=== PATIENT | female | born 1955 | race Hispanic/Latino ===

== ENCOUNTER 2020-05-11 16:39 | Emergency (ER) | payer MEDICARE ==
[~2020-05-11] VITALS: Ht 147.3 cm; Wt 60.8 kg
[~2020-05-11 16:39] MED LIST: B/P MED; Z.0.DEXILANT30 MG PO; Z.0.DICYCLOMINE HCL1 PO; Z.0.FENOFIBRATE160 M PO; Z.0.GABAPENTIN300 MG PO; Z.0.HYDROCHLOROTHIA2 PO; Z.1.HYDROCHLOROTH12. PO
[2020-05-11] MEDS ORDERED: ACETAMINOPHEN 325 MG TAB PO ONE (17:00)
[2020-05-11] MEDS ORDERED: FAMOTIDINE 20 MG/2 ML VIAL IV ONE (17:00)
[2020-05-11 17:18] LABS: BASOPHILS # (AUTO) 0.1 (0.0-0.1); BASOPHILS % 0.4 % (0.0-1.0); EOSINOPHILS # (AUTO) 0.2 (0.0-0.4); EOSINOPHILS % 1.3 % (0.0-6.0); HEMATOCRIT 44.5 % (34.2-44.1); HEMOGLOBIN 15.1 g/dL (12.0-16.0); LYMPHOCYTES # (AUTO) 3.7 (1.0-3.2); LYMPHOCYTES % 32.3 % (18.0-39.1); MEAN CORPUSCULAR HEMOGLOBIN 29.5 pg (28-32); MEAN CORPUSCULAR HGB CONC 33.9 g/dL (31-35); MEAN CORPUSCULAR VOLUME 87.1 fL (81-99); MONOCYTES # (AUTO) 0.5 (0.2-0.8); MONOCYTES % 4.5 % (4.4-11.3); PLATELET COUNT 178 x10e3/uL (140-360); RED BLOOD COUNT 5.11 x10e6/uL (3.6-5.1); RED CELL DISTRIBUTION WIDTH 11.8 % (11.7-14.4)
[2020-05-11 17:36] LABS: ALANINE AMINOTRANSFERASE 26 IU/L (0-55); ALBUMIN 4.9 g/dL (3.5-5.0); ALBUMIN/GLOBULIN RATIO 1.5 (0.8-2.0); ALKALINE PHOSPHATASE 65 IU/L (40-150); ANION GAP 18.7 mmol/L (8-16); BLOOD UREA NITROGEN 20 mg/dL (7-26); BUN/CREATININE RATIO 26 (6-25); CARBON DIOXIDE 23 mmol/L (22-29); CHLORIDE 105 mmol/L (98-107); CREATINE KINASE 251 IU/L (29-168); CREATININE, SERUM 0.77 mg/dL (0.57-1.11); EST GLOMERULAR FILTRATION RATE > 60 ML/MIN (60-); GLUCOSE 124 mg/dL (74-118); POTASSIUM 3.7 mmol/L (3.5-5.1); SODIUM 143 mmol/L (136-145)
[2020-05-11 18:28] VITALS: BP 95/52
--- NOTE | 2020-05-11 18:31 | Emergency Department Note ---
History of Present Illnes History of Present Illness Chief Complaint: Chest Pain History of Present Illness This is a 65 year old female. Pt states she was seen by pcp who told her she had bronchitis and gave her abx; here today for cough cp and epigastric pain x 3 days denies fever/n/v/d/sore throat/muscle aches/chills seen by dr carrillo Historian: Patient Arrival Mode: Car Community Relations Director Required: No Onset (how long ago): day(s) Onset quality: gradual Duration (how long): day(s) Progression: waxing and waning Relieving factors: medication Exacerbating factors: none Associated symptoms: Reports other Treatments prior to arrival: none Past Medical/Family History Physician Review I have reviewed the patient's past medical and family history. Any updates have been documented here. Past Medical History Recent Fever: No Clinical Suspicion of Infectio: Yes New/Unexplained Change in Ment: No Past Medical History: Hypertension, Diabetes, GERD, Hyperlipedemia Other Medical History: GASTRITIS Past Surgical History: Cholecysctectomy, Appendectomy, Other Surgery: Social History Smoking Cessation: Never Smoker Counseling Performed: No Alcohol Use: None Any Illegal Drug Use: No Other Last Tetanus: NO Any Pre-Existing Lines (PICC,: No Review of Systems Review of Systems Constitutional: Reports no symptoms EENTM: Reports no symptoms Cardiovascular: Reports no symptoms Respiratory: Reports no symptoms, Reports chest congestion, Reports cough, Reports pain with cough Gastrointestinal: Reports no symptoms Genitourinary: Reports no symptoms Musculoskeletal: Reports no symptoms Integumentary: Reports no symptoms Neurological: Reports no symptoms Psychological: Reports no symptoms Endocrine: Reports no symptoms Hematological/Lymphatic: Reports no symptoms Physical Exam Related Data Allergies: Coded Allergies: Sulfa(Sulfonamide Antibiotics) (Verified Allergy, 06/01/12) Triage Vital Signs Vital Signs Date Time Temp Pulse Resp B/P (MAP) Pulse Ox O2 Delivery O2 Flow Rate FiO2 05/11/20 16:46 98.9 103 20 179/82 100 Room Air Vital signs reviewed: Yes Physical Exam CONSTITUTIONAL Constitutional: Present well-developed, Present well-nourished HENT HENT: Present normocephalic, Present atraumatic, Present oropharynx clear/moist, Present nose normal HENT L/R: Present left ext ear normal, Present right ext ear normal EYES Eyes: Reports PERRL, Reports conjunctivae normal NECK Neck: Present ROM normal PULMONARY Pulmonary: Present effort normal, Present breath sounds normal CARDIOVASCULAR Cardiovascular: Present regular rhythm, Present heart sounds normal, Present capillary refill normal, Present normal rate GASTROINTESTINAL Abdominal: Present soft, Present nontender, Present bowel sounds normal GENITOURINARY Genitourinary: Present exam deferred SKIN Skin: Present warm, Present dry MUSCULOSKELETAL Musculoskeletal: Present ROM normal NEUROLOGICAL Neurological: Present alert, Present oriented x 3, Present no gross motor or sensory deficits PSYCHOLOGICAL Psychological: Present mood/affect normal, Present judgement normal Results Laboratory Result Diagram: 05/11/20 1655 05/11/20 1655 Laboratory Laboratory Tests Test 05/11/20 16:55 White Blood Count 11.44 x10e3/uL (4.8-10.8) Red Blood Count 5.11 x10e6/uL (3.6-5.1) Hemoglobin 15.1 g/dL (12.0-16.0) Hematocrit 44.5 % (34.2-44.1) Mean Corpuscular Volume 87.1 fL (81-99) Mean Corpuscular Hemoglobin 29.5 pg (28-32) Mean Corpuscular Hemoglobin Concent 33.9 g/dL (31-35) Red Cell Distribution Width 11.8 % (11.7-14.4) Platelet Count 178 x10e3/uL (140-360) Neutrophils (%) (Auto) 61.0 % (38.7-80.0) Lymphocytes (%) (Auto) 32.3 % (18.0-39.1) Monocytes (%) (Auto) 4.5 % (4.4-11.3) Eosinophils (%) (Auto) 1.3 % (0.0-6.0) Basophils (%) (Auto) 0.4 % (0.0-1.0) Neutrophils # (Auto) 7.0 (2.1-6.9) Lymphocytes # (Auto) 3.7 (1.0-3.2) Monocytes # (Auto) 0.5 (0.2-0.8) Eosinophils # (Auto) 0.2 (0.0-0.4) Basophils # (Auto) 0.1 (0.0-0.1) Absolute Immature Granulocyte (auto 0.06 x10e3/uL (0-0.1) D-Dimer Quantitative (PE/DVT) 0.33 ug/mLFEU (0.00-0.45) Sodium Level 143 mmol/L (136-145) Potassium Level 3.7 mmol/L (3.5-5.1) Chloride Level 105 mmol/L (98-107) Carbon Dioxide Level 23 mmol/L (22-29) Anion Gap 18.7 mmol/L (8-16) Blood Urea Nitrogen 20 mg/dL (7-26) Creatinine 0.77 mg/dL (0.57-1.11) Estimat Glomerular Filtration Rate > 60 ML/MIN (60-) BUN/Creatinine Ratio 26 (6-25) Glucose Level 124 mg/dL (74-118) Calcium Level 10.0 mg/dL (8.4-10.2) Total Bilirubin 1.6 mg/dL (0.2-1.2) Aspartate Amino Transf (AST/SGOT) 26 IU/L (5-34) Alanine Aminotransferase (ALT/SGPT) 26 IU/L (0-55) Alkaline Phosphatase 65 IU/L (40-150) Creatine Kinase 251 IU/L (29-168) Creatine Kinase MB 0.90 ng/mL (0-5.0) Troponin I 0.005 ng/mL (0-0.300) Total Protein 8.2 g/dL (6.5-8.1) Albumin 4.9 g/dL (3.5-5.0) Globulin 3.3 g/dL (2.3-3.5) Albumin/Globulin Ratio 1.5 (0.8-2.0) Laboratory comments ddimer nl, doubt PE Imaging Imaging results reviewed: Yes Imaging Comments no PNA Diagnostics Tests Diagnostic test(s) reviewed: Yes Procedures 12 Lead ECG Interpretation ECG Interpretation : ECG: ECG 1 Community Relations Director: Interpreted by ED physician Date: May 11, 2020 Time: 17:04 Prior ECG tracings: reviewed (old LBBB) Rhythm: sinus rhythm Rate: normal QRS axis: normal Conduction: left bundle branch block Clinical Impression: abnormal ECG Assessment & Plan Medical Decision Making MDM PNA vs bronchitis vs URI VS GERD Reassessment Reassessment time: 18:20 Reassessment doing better Assessment & Plan Final Impression: (1) Upper respiratory infection (2) Bronchitis Depart Disposition: HOME, SELF-CARE Last Vital Signs Date Time Temp Pulse Resp B/P (MAP) Pulse Ox O2 Delivery O2 Flow Rate FiO2 05/11/20 17:32 92 18 165/82 96 Room Air 05/11/20 16:46 98.9 Home Meds Reported Medications Dexlansoprazole (Dexilant) 30 Mg Nuno., 30 MG PO DAILY 06/18/12 Hydrochlorothiazide (Hydrochlorothiazide) 12.5 Mg Tablet, 12.5 MG PO DAILY 06/18/12 Dicyclomine Hcl (Dicyclomine Hcl) 10 Mg Capsule, 10 MG PO TID 06/18/12 Gabapentin (Gabapentin) 300 Mg Capsule, 300 MG PO BID 06/18/12 Fenofibrate (Fenofibrate) 160 Mg Tablet, 160 MG PO DAILY 06/18/12 [B/P Med] No Conflict Check 06/01/12 Medications in the ED Famotidine 20 mg ONCE ONCE IV Last administered on 05/11/20at 17:25; Admin Dose 20 MG; Start 05/11/20 at 17:00; Stop 05/11/20 at 17:01; Status DC Acetaminophen 650 mg ONCE ONCE PO Last administered on 05/11/20at 17:27; Admin Dose 650 MG; Start 05/11/20 at 17:00; Stop 05/11/20 at 17:01; Status DC Physician Attestation Provider Attestation vital signs are acceptable. patient is taking oral fluid well, saturation in normal on room air. Respiratory effort is normal. Patient can be safely discharge JUANCHO CARRILLO MD May 11, 2020 18:31
--- NOTE | 2020-05-11 19:22 | Diagnostic Imaging Report ---
Examination: Single AP view of the chest. COMPARISON: None. INDICATION: Chest pain DISCUSSION: Lines/tubes: None. Lungs: The lungs are well inflated and clear. No pneumonia or pulmonary edema. Pleura: No pleural effusion or pneumothorax. Heart and mediastinum: The heart and the mediastinum are unremarkable. Bones and soft tissues: No acute bony abnormalities. IMPRESSION: 1. No acute cardiopulmonary abnormalities. Signed by: Dr. Jose M Lantigua M.D. on 05/11/2020 7:19 PM
== END 2020-05-11 18:58 | disposition home or self-care (01) ==
LOC: ER 17:05
DX: J40 Bronchitis, not specified as acute or chronic (principal); J06.9 Acute upper respiratory infection, unspecified; R05 Cough; R10.13 Epigastric pain; I10 Essential (primary) hypertension; E11.9 Type 2 diabetes mellitus without complications; E78.5 Hyperlipidemia, unspecified; K21.9 Gastro-esophageal reflux disease without esophagitis
CPT/HCPCS: 36415; 71045; 80053; 82550; 82553; 84484; 85025; 85379; 93005; 99284

== ENCOUNTER 2020-08-14 17:24 | Emergency (ER) | payer MEDICARE ==
[~2020-08-14] VITALS: Ht 147.3 cm; Wt 60.8 kg
== END 2020-08-14 18:48 | disposition home or self-care (01) ==
LOC: ER 18:38
DX: Z71.1 Person with feared health complaint in whom no diagnosis is made (principal); I10 Essential (primary) hypertension; E11.65 Type 2 diabetes mellitus with hyperglycemia; E78.5 Hyperlipidemia, unspecified; K21.9 Gastro-esophageal reflux disease without esophagitis
CPT/HCPCS: 36415; 82948; 99282